=== PATIENT | female | born 1965 | race Caucasian/White ===

== ENCOUNTER 2021-04-01 15:14 | Emergency (ER) | payer MEDICARE ==
[2021-04-01] MEDS ORDERED: predniSONE 20 MG TAB ONE ×2 (16:07→16:09)
== END 2021-04-01 16:22 | disposition home or self-care (01) ==
LOC: BURERS 15:14
DX: S80.12XA Contusion of left lower leg, initial encounter (principal); I10 Essential (primary) hypertension; Z87.891 Personal history of nicotine dependence; Z79.899 Other long term (current) drug therapy; Z79.82 Long term (current) use of aspirin; W19.XXXA Unspecified fall, initial encounter
CPT/HCPCS: J7512